=== PATIENT | male | born 1965 | race Caucasian/White ===

== ENCOUNTER 2022-03-20 09:53 | Emergency (ER) | payer OTHER, SELFPAY ==
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
[2022-03-20 09:54] VITALS: BP 192/110; PULSE 114; RESP 16; TEMP 36.7; O2SAT 99
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
== END 2022-03-20 11:01 | disposition home or self-care (01) ==
LOC: ANHED 10:45
PROVIDERS: Emergency Provider Nurse Practitioner Family
DX: S50.02XA Contusion of left elbow, initial encounter (principal); M19.022 Primary osteoarthritis, left elbow; V48.5XXA Car driver injured in noncollision transport accident in traffic accident, initial encounter
CPT/HCPCS: 73080; 99283; A4565